=== PATIENT | male | born 1970 | race Two or more races ===

== ENCOUNTER 2017-02-20 07:59 | Emergency (ER) | payer MEDICAID ==
[~2017-02-20] VITALS: Ht 175.3 cm; Wt 68.0 kg
[2017-02-20 08:07] VITALS: BP 118/76
[2017-02-20] MEDS ORDERED: DIVA500T2 PO (08:19)
[2017-02-20] MEDS ORDERED: CHLO100T6 PO (08:19)
== END 2017-02-20 08:53 | disposition home or self-care (01) ==
LOC: ED 08:47
DX: Z76.0 Encounter for issue of repeat prescription (principal); F20.0 Paranoid schizophrenia
CPT/HCPCS: 82962; 99283

== ENCOUNTER 2017-03-26 23:43 | Emergency (ER) | payer MEDICAID ==
[~2017-03-26] VITALS: Ht 175.3 cm; Wt 73.6 kg
[~2017-03-26 23:43] MED LIST: CHLO100T6 PO; DIVA500T2 PO
[2017-03-26 23:46] VITALS: BP 100/64
[2017-03-27 00:41] LABS: BASOPHILS # (AUTO) 0.05 x10^3/uL (0-0.1); BASOPHILS % (AUTO) 1 % (0-1); EOSINOPHILS # (AUTO) 0.23 x10^3/uL (0-0.4); EOSINOPHILS % (AUTO) 3 % (1-7); LYMPHOCYTES # (AUTO) 2.18 x10^3/uL (1-3.4); LYMPHOCYTES % (AUTO) 25 % (22-44); MD NO; MEAN CORPUSCULAR HEMOGLOBIN 33.1 pg (27.5-34.5); MEAN CORPUSCULAR HGB CONC 34.8 g/dL (33.2-36.2); MEAN CORPUSCULAR VOLUME 94.9 fL (81-97); MEAN PLATELET VOLUME 7.2 fL (7.4-10.4); MONOCYTES # (AUTO) 0.35 x10^3/uL (0.2-0.8); MONOCYTES % (AUTO) 4 % (2-9); NEUTROPHILS # (AUTO) 5.84 x10^3/uL (1.8-6.8); NEUTROPHILS % (AUTO) 68 % (42-75); PLATELET COUNT 277 x10^3/uL (130-400); RED BLOOD COUNT 4.48 x10^6/uL (4.38-5.82); RED CELL DISTRIBUTION WIDTH 12.9 % (9.4-14.8)
[2017-03-27 00:57] LABS: AMPHETAMINE SCREEN, URINE Negative (Negative); BARBITURATE SCREEN, URINE Negative (Negative); BENZODIAZEPINE SCREEN, URINE Negative (Negative); CANNABINOID SCREEN, URINE Positive (Negative); COCAINE SCREEN, URINE Negative (Negative); METHADONE SCREEN, URINE Negative (Negative); OPIATE SCREEN, URINE Negative (Negative)
[2017-03-27 02:16] LABS: ALBUMIN 3.7 g/dL (3.4-5.0); ANION GAP 12 mmol/L (5-15); CALCIUM 8.4 mg/dL (8.5-10.1); CHLORIDE 108 mmol/L (98-107)
[2017-03-27 02:20] LABS: ALANINE AMINOTRANSFERASE 25 U/L (12-78); ALKALINE PHOSPHATASE 48 U/L (45-117); BILIRUBIN,TOTAL 0.5 mg/dL (0.2-1.0); CREATININE 0.97 mg/dL (0.7-1.3); SALICYLATE LEVEL 4.9 mg/dL (2.8-20.0); TOTAL PROTEIN 7.1 g/dL (6.4-8.2)
[2017-03-27 02:24] LABS: ACETAMINOPHEN < 2 mcg/mL (10-30)
== END 2017-03-27 05:50 | disposition home or self-care (01) ==
LOC: ED 23:57
DX: F39 Unspecified mood [affective] disorder (principal); Z00.01 Encounter for general adult medical examination with abnormal findings; F31.9 Bipolar disorder, unspecified; F20.9 Schizophrenia, unspecified; F10.10 Alcohol abuse, uncomplicated; R44.3 Hallucinations, unspecified
CPT/HCPCS: 36415; 80053; 80307; 80329; 85025; 99284; G0480

== ENCOUNTER 2019-05-21 17:48 | Emergency (ER) | payer SELFPAY ==
[~2019-05-21] VITALS: Ht 170.2 cm; Wt 64.0 kg
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
--- NOTE | 2019-05-21 18:15 | NUR ---
[facility]PA TO [facility] BS
[2019-05-21 18:31] LABS: BASOPHILS # (AUTO) 0.07 x10^3/uL (0-0.1); BASOPHILS % (AUTO) 1 % (0-1); EOSINOPHILS # (AUTO) 0.07 x10^3/uL (0-0.4); EOSINOPHILS % (AUTO) 1 % (1-7); LYMPHOCYTES # (AUTO) 1.76 x10^3/uL (1-3.4); LYMPHOCYTES % (AUTO) 24 % (22-44); MD NO; MEAN CORPUSCULAR HEMOGLOBIN 34.3 pg (27.5-34.5); MEAN CORPUSCULAR HGB CONC 34.8 g/dL (33.2-36.2); MEAN CORPUSCULAR VOLUME 98.5 fL (81-97); MEAN PLATELET VOLUME 7.4 fL (7.4-10.4); MONOCYTES # (AUTO) 0.33 x10^3/uL (0.2-0.8); MONOCYTES % (AUTO) 5 % (2-9); NEUTROPHILS # (AUTO) 5.03 x10^3/uL (1.8-6.8); NEUTROPHILS % (AUTO) 69 % (42-75); PLATELET COUNT 237 x10^3/uL (130-400); RED CELL DISTRIBUTION WIDTH 12.9 % (9.4-14.8)
[2019-05-21 18:44] LABS: ALBUMIN 4.1 g/dL (3.4-5.0); ANION GAP 10 mmol/L (5-15); CALCIUM 9.1 mg/dL (8.5-10.1); CHLORIDE 110 mmol/L (98-107); CREATININE 0.95 mg/dL (0.7-1.3); SALICYLATE LEVEL 5.6 mg/dL (2.8-20.0)
[2019-05-21 19:08] LABS: AMPHETAMINE SCREEN, URINE Negative (Negative); BARBITURATE SCREEN, URINE Negative (Negative); BENZODIAZEPINE SCREEN, URINE Negative (Negative); CANNABINOID SCREEN, URINE Positive (Negative); COCAINE SCREEN, URINE Negative (Negative); METHADONE SCREEN, URINE Negative (Negative); OPIATE SCREEN, URINE Negative (Negative)
--- NOTE | 2019-05-21 19:16 | NUR ---
Report from Belem MONSALVE.
[2019-05-21] MEDS ORDERED: ZIPRASIDONE 20 MG INJ IM ONE ×2 (19:24→19:30)
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
--- NOTE | 2019-05-21 20:30 | NUR ---
Restraints readjusted for pt's comfort.
[2019-05-21] MEDS ORDERED: NICOTINE 21 MG/24 HR PATCH.TD24 ONE (20:53)
--- NOTE | 2019-05-21 20:56 | NUR ---
Pt requested nicotine patch states he is going through nicotine withdrawals, pt reports he smokes 1 pack/day. Okay per ERP to give nicotine patch. Sitter outside hallway for safety.
[2019-05-21] MEDS ORDERED: NICOTINE 21 MG/24 HR PATCH.TD24 TD ONE (21:00)
--- NOTE | 2019-05-21 21:52 | NUR ---
Pt resting on gurney, sitter at bedside for safety.
[2019-05-21 22:00] VITALS: BP 105/58
--- NOTE | 2019-05-21 22:06 | NUR ---
Pt verbalized he will be cooperative with staff and will not be aggressive, pt educated on restraints and need for restraints if aggressive behavior continues, pt verbalized understanding, restraints removed.
[2019-05-21] MEDS ORDERED: RISP1TAB3 PO (22:36)
--- NOTE | 2019-05-21 22:49 | NUR ---
Report given to telepsych provider. Per provider she will connect with pt now.
--- NOTE | 2019-05-21 23:04 | NUR ---
Resting on gurney, denies HI at this time. Sitter at doorway for safety precautions.
== END 2019-05-21 23:42 | disposition home or self-care (01) ==
LOC: ED 22:26
DX: F10.10 Alcohol abuse, uncomplicated (principal); Y90.0 Blood alcohol level of less than 20 mg/100 ml
CPT/HCPCS: 36415; 80048; 80307; 82040; 85025; 96372; 99283; J3486